=== PATIENT | female | born 1980 ===

== ENCOUNTER 2017-09-14 06:44 | Inpatient (IN) | payer OTHER ==
[2017-09-12 09:32] VITALS: BMI 26.5
[2017-09-14] MEDS ORDERED: Propofol 10 mg/ml Inj (20 ML) ONE (06:52)
[2017-09-14] MEDS ORDERED: Midazolam 2 MG/2 ML VIAL ONE (06:53)
[2017-09-14] MEDS ORDERED: Rocuronium 10 mg/ml (5 ml) ONE (06:53)
[2017-09-14] MEDS ORDERED: Neostigmine 1:1000 (1 mg/ml) Inj ONE (07:05)
[2017-09-14] MEDS ORDERED: ceFAZolin IV 2 gm in Dextrose 2 GM/50 ML BAG IVPB ONE (07:14)
[2017-09-14] MEDS ORDERED: Lactated Ringer's 1,000 ML IV ONE ×3 (08:00→11:00)
[2017-09-14 08:08] LABS: BASO # 0.1 K/uL (0.0-0.2); BASO % 0.7 % (0.0-2.0); EOS # 0.1 K/uL (0.0-0.7); EOS % 1.5 % (0.0-4.0); HEMOGLOBIN 11.6 g/dL (12.0-16.0); LYMPH # 2.2 K/uL (1.0-4.3); LYMPH % 28.8 % (20.0-40.0); MEAN CELL VOLUME 84.6 fl (81.0-99.0); MEAN CORPUSCULAR HEMOGLOBIN 27.7 pg (27.0-31.0); MEAN CORPUSCULAR HGB CONC 32.8 g/dL (33.0-37.0); MEAN PLATELET VOLUME 9.6 fl (7.2-11.7); MONO # 0.7 K/uL (0.0-0.8); MONO % 9.4 % (0.0-10.0); NEUT # 4.6 K/uL (1.8-7.0); NEUT % 59.6 % (50.0-75.0); RBC 4.18 Mil/uL (3.80-5.20); RED CELL DISTRIBUTION WIDTH 14.9 % (11.5-14.5); WHITE BLOOD COUNT 7.7 K/uL (4.8-10.8)
[2017-09-14 08:12] LABS: PROTHROMBIN TIME 11.6 Seconds (9.8-13.1)
[2017-09-14 08:15] LABS: PARTIAL THROMBOPLASTIN TIME 31.2 Seconds (25.6-37.1)
[2017-09-14] MEDS ORDERED: Dexamethasone 4 mg/1 ml ONE (08:27)
[2017-09-14] MEDS: Bupivacaine HCl 0.5% PF (30 ml) Inj ONE ×2 (08:33→08:55)
[2017-09-14] MEDS ORDERED: ePHEDrine 50 mg/ml Inj ONE (08:41)
[2017-09-14] MEDS ORDERED: Lactated Ringer's 500 ML IV SCH ×2 (11:00→11:15)
[2017-09-14] MEDS ORDERED: HYDROmorphone 0.5 mg/0.5 ml ISec IVP PRN (11:05)
[2017-09-14] MEDS: cefOXitin IV 1 gm in Dextrose 1 GM/50 ML BAG IVPB SCH (17:19)
[2017-09-14] MEDS: Lactated Ringer's 1,000 ML IV SCH (17:37)
--- NOTE | 2017-09-14 19:44 | OP ---
Copied To: Aiden Santos MD Attending MD: Aiden Santos MD PROCEDURE DATE: PREOPERATIVE DIAGNOSES: Symptomatic fibroid uterus, pelvic pain pressure with emergency room visits. POSTOPERATIVE DIAGNOSES: Symptomatic fibroid uterus, pelvic pain pressure with emergency room visits. PROCEDURE: Robotic assisted hysterotomy, cystoscopy with stent placements. SURGEON: Aiden Santos MD BEHAVIOR CLINICIAN: Jennifer Machado MD. She was helping obtain hemostasis, irrigation, and extraction of the specimen and closure of the patient. The procedure would not have been possible without her assistance. ESTIMATED BLOOD LOSS: Approximate 50 mL. URINE OUTPUT: Rojas catheter put out approximately 300 mL of clear urine. FLUID REPLACEMENTS: Patient received approximately 2 liters of D5 LR intraoperatively. 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 Cystoscopic findings were normal dome of the bladder, and bilateral efflux of urine was noted post procedure. DESCRIPTION OF PROCEDURE: After informed consent was obtained, the patient was taken to the operating room where she was given general anesthesia. She was then prepped and draped in the normal sterile fashion. The patient was placed in [facility]. Attention was then turned to the urethra where the cystoscope was inserted into the bladder. The right and left ureteral orifices were identified and the right orifice was stented and ICG grain was injected. A similar procedure was performed on the left. Procedure was performed due to the patient's MRI findings which revealed a very large adnexal mass, possible ovarian etiology, potentially fibroid, and we anticipate having to enter the retroperitoneal space. Attention was then turned to the vagina where the cervix was visualized, grasped with a single-tooth tenaculum. The cervix was then gently dilated and a VCare uterine manipulator was inserted into the uterine cavity as a means to manipulate the uterus. Attention was then turned to the urethra where a Rojas catheter was inserted to monitor the patient's urinary output. We then proceeded to the abdomen where approximately 10 cm superior to the umbilicus, an 8-mm incision was made. Marcaine was infused. The abdomen was tented upward and the Veress needle was inserted into the abdominal cavity. Placement was confirmed with a fluid-filled syringe. The abdomen was then insufflated to 15 mmHg. The Veress needle was removed. The 8-mm robotic trochar was achieved into the abdominal cavity and placement confirmed with the laparoscope. The abdomen was then surveyed with the findings as noted above. There was a large broad ligament fibroid. Uterus was noted to be approximately 10 to 12 weeks in size. Normal ovaries and tubes were noted. Attention was then turned to approximately 5 cm superior to the right anterior iliac crest. Marcaine was infused. An 8-mm incision was made and 8-mm robotic port was introduced into the abdominal cavity under direct visualization. Similar procedure was performed on the left approximately 10 cm right and lateral with the umbilicus. Marcaine was infused. An 8-mm incision was made and robotic port was introduced into the abdominal cavity. Attention was then turned to the left side of the umbilicus approximately 10 cm left and lateral. A 5 mm incision was made and a 5- mm robotic probe was introduced into the abdominal cavity. The patient was then placed in steep Trendelenburg. The table was lowered. and the robot was brought along the patient's side without complications. The instruments used for the surgery were PK dissector, Hipolito Suture Cut, ProGrasp, and scissors. The instruments were inserted. I then broke, scrub, and proceeded to the surgical console. Upon evaluation for the abdomen, we proceeded towards the left utero-ovarian ligament which was serially coagulated and transected with the scissors. Attention was then turned to fallopian tube that was undermined with the scissors and dissected away from the broad ligament. Attention was then turned to the round ligament which in similar fashion was serially coagulated and then transected with the scissors. We then proceeded anteriorly, identified the V-Care cuff anteriorly. The deep vesicouterine peritoneum was elevated and entered sharply with the scissors. The vesicouterine peritoneum was then undermined and dissected up towards the right round ligament. We then proceeded posteriorly which in similar fashion. The VCare cup was identified. The peritoneum was scored with the scissors. Then, the posterior aspect of the peritoneum was undermined with the PK and dissected up towards the utero-ovarian ligament. The uterine arteries were then skeletonized and serially coagulated down at the level of the VCare cup. Firefly technology was extubated. The ureter was clearly identified and located inferiorly. Attention was then turned to the left side where the utero-ovarian ligament was serially coagulated and transected. The peritoneum was scored and the fibroid was enucleated from the adnexa using both sharp and blunt dissection. The left round ligament was then serially coagulated and then transected with the scissors. The vesicouterine peritoneum was then undermined down to the level of the VCare cup anteriorly. A similar procedure was performed posteriorly. The uterine arteries were then skeletonized, serially coagulated. Firefly technology was activated and the ureter was noted to be clear. The uterine arteries were then transected and the VCare cup was then identified anteroposteriorly and laterally. The cervix and uterus were then amputated from the vagina using the scissors. The specimen was then delivered vaginally. The fibroid was delivered vaginally. The vaginal cuff was closed with 2- 0 barbed suture in a running fashion. The abdomen was then copiously irrigated. The irrigant was removed with a suction device. Hemostasis was noted. All instruments were then removed from the abdomen and the robot was undocked from the patient successfully. The cystoscope was inserted into the bladder. The dome was noted to be intact. We noted bilateral efflux of urine. The abdominal incisions were then repaired with 3-0 Biosyn and Dermabond. All sponge, lap, needle, and instrument counts were correct x2, and the patient was taken to the recovery room in awake and stable condition. Aiden Santos MD
[2017-09-15] MEDS: cefOXitin IV 1 gm in Dextrose 1 GM/50 ML BAG IVPB SCH ×2 (00:10→08:55)
[2017-09-15] MEDS: Lactated Ringer's 1,000 ML IV SCH (02:56)
[2017-09-15 08:49] LABS: HEMOGLOBIN 10.2 g/dL (12.0-16.0); MEAN CORPUSCULAR HGB CONC 33.4 g/dL (33.0-37.0); RBC 3.63 Mil/uL (3.80-5.20); RED CELL DISTRIBUTION WIDTH 14.3 % (11.5-14.5); WHITE BLOOD COUNT 11.1 K/uL (4.8-10.8)
[2017-09-15] MEDS ORDERED: Oxycodone/Acetaminophen 5/325 mg Tab PO PRN (11:46)
--- NOTE | 2017-09-15 11:52 | CP.SDSHP ---
Same Day Surgery H & P - Allergies Allergies: Allergies No Known Allergies Allergy (Verified 09/14/17 07:01) - Physical Exam Vital Signs: Vital Signs 09/15/17 09/15/17 05:00 07:47 Temperature 99.0 F 98.3 F Pulse Rate 65 60 Respiratory 16 19 Rate Blood Pressure 105/55 L 100/59 L O2 Sat by Pulse 100 100 Oximetry Short Stay Discharge - Short Stay Discharge Admitting Diagnosis/Reason for Visit: ROBOTIC HYSTERECTOMY Referrals: Shaik Powell MD [Primary Care Provider] - Instructions: Robot-Assisted Surgery, How to Wash Your Hands Properly Progress Note/Discharge Note with Instructions: Patient doing well Will DC home Nothing per vagina No heavy lifting
[2017-09-15 15:31] VITALS: BP 102/56; PULSE 75; RESP 20; TEMP 99.3; O2SAT 98
== END 2017-09-15 16:10 | disposition home or self-care (01) | DRG 361 ==
LOC: H.OPSURG 06:44 → H.PEDS 10:55
PROVIDERS: ADMIT Obstetrics & Gynecology Gynecology; ATTEND Obstetrics & Gynecology Gynecology
PROC: 0TJB8ZZ Inspection of Bladder, Via Natural or Artificial Opening Endoscopic (ICD-10-PCS; 2017-09-14)
PROC: 0UT9FZZ Resection of Uterus, Via Natural or Artificial Opening With Percutaneous Endoscopic Assistance (ICD-10-PCS; principal; 2017-09-14 07:45)
PROC: 8E0W4CZ Robotic Assisted Procedure of Trunk Region, Percutaneous Endoscopic Approach (ICD-10-PCS; 2017-09-14 07:45)
DX: D25.9 Leiomyoma of uterus, unspecified (principal)